=== PATIENT | male | born 1985 | race Caucasian/White ===

== ENCOUNTER 2020-01-21 07:58 | Emergency (ER) | payer SELFPAY ==
[~2020-01-21] VITALS: Ht 185.2 cm; Wt 130.0 kg
--- OUTSIDE RECORDS SUMMARY | 2020-01-21 08:08 | XMS REPORT | Continuity of Care Document ---
Author Organization Unknown Address Unknown Phone Unavailable Allergies There is no data. Medications There is no data. Problems There is no data. Procedures There is no data. Results Test Result Range TESTOSTERONE, TOTAL - 01/07/20 09:04 TESTOSTERONE, TOTAL, MALES (ADULT), [place] 381 ng/dL [id number] Encounters ACCT No. Visit Date/Time Discharge Status Pt. Type Provider Facility Loc./Unit Complaint [id number] 01/14/2020 08:00:00 01/14/2020 23:59: 59 C[facility] [id number] 01/07/2020 09:20:00 Document Registration
[2020-01-21] MEDS ORDERED: LACTATED RINGERS 1,000 ML IV ONE (08:10)
--- NOTE | 2020-01-21 08:10 | ED EENT ---
History of Present Illness General Stated Complaint: POSSIBLE ALLERGIC REACTION;TOOTH ABSCESS Source: patient Exam Limitations: no limitations History of Present Illness Date Seen by Provider: Jan 21, 2020 Time Seen by Provider: 07:59 Initial Comments patient presents to the ER by private conveyance with chief complaint of swelling in the left face as well as pain for the last 2-3 days progressively worse. He is on over a week of clindamycin for abscessed left lower tooth. He is having no discharge or drainage from the mouth. No difficulty with breathing. He says it is a little tender whenever he swallows in his neck. He has no other significant medical history. He does not smoke but he does chew tobacco. He is having no fevers nausea vomiting chills, cough or shortness of air. He has a follow-up appointment with the dentist. He follows with Fredrick Antony nurse practitioner at [facility] for primary care. No other significant medical problems. Allergies and Home Medications Allergies Coded Allergies: Penicillins (Verified Allergy, Unknown, rash, swelling, 01/21/20) Patient Home Medication List Home Medication List Reviewed: Yes Review of Systems Review of Systems Constitutional: No chills, No fever, No malaise Eyes: Denies Blindness, Denies Blurred Vision, Denies Drainage Ears: Denies Dizziness, Denies Pain Nose: denies clots, denies congestion, denies epistaxis, denies pain, denies clear discharge Mouth: see HPI, pain, swelling (left mandible); denies purulent discharge Throat: see HPI, pain, swelling, neck stiffness; denies hoarse, denies aphonia, denies muffled; painful swallowing; denies difficulty with fluids Respiratory: No cough, No short of breath All Other Systems Reviewed Negative Unless Noted: Yes Past Pcpcfwu-Lyijpv-Qqbdav Hx Patient Social History Alcohol Use: Denies Use Recreational Drug Use: No Smoking Status: Never a Smoker Type Used: Smokeless Tobacco Recent Foreign Travel: No Contact w/Someone Who Travel: No Physical Exam Vital Signs Vital Signs - First Documented 01/21/20 08:02 Temp 37.0 Pulse 82 Resp 18 B/P (MAP) 135/90 (105) Pulse Ox 99 O2 Delivery Room Air Height, Weight, BMI Height: '" Weight: lbs. oz. kg; BMI Method: General Appearance: WD/WN, mild distress Eyes: bilateral eye normal inspection, bilateral eye PERRL, bilateral eye EOMI Ears: right ear TM normal; left ear other (1.5 cm blade of grass in the outer ear canal. No erythema, tenderness, exudate.); bilateral ear auricle normal, bilateral ear canal normal Nose: normal inspection; No active bleeding, No discharge Mouth/Throat: dental tenderness; No excessive drooling; mandibular swelling, other (no pointing. Tender mandibular gum left side. No crepitus or tenderness at the temporal mandibular joint.) Neck: tender lateral (left side mild to moderate swelling with tenderness, palpable fluctuance and painful swallowing. ) Cardiovascular: normal peripheral pulses, regular rate, rhythm Respiratory: no respiratory distress, no accessory muscle use Progress/Results/Core Measures Results/Orders Lab Results Laboratory Tests Test 01/21/20 08:13 Range/Units White Blood Count 9.0 4.3-11.0 10^3/uL Red Blood Count 4.92 4.35-5.85 10^6/uL Hemoglobin 14.3 13.3-17.7 G/DL Hematocrit 42 40-54 % Mean Corpuscular Volume 85 80-99 FL Mean Corpuscular Hemoglobin 29 25-34 PG Mean Corpuscular Hemoglobin Concent 34 32-36 G/DL Red Cell Distribution Width 12.8 10.0-14.5 % Platelet Count 293 130-400 10^3/uL Mean Platelet Volume 9.6 7.4-10.4 FL Neutrophils (%) (Auto) 69 42-75 % Lymphocytes (%) (Auto) 22 12-44 % Monocytes (%) (Auto) 9 0-12 % Eosinophils (%) (Auto) 1 0-10 % Basophils (%) (Auto) 0 0-10 % Neutrophils # (Auto) 6.2 1.8-7.8 X 10^3 Lymphocytes # (Auto) 2.0 1.0-4.0 X 10^3 Monocytes # (Auto) 0.8 0.0-1.0 X 10^3 Eosinophils # (Auto) 0.1 0.0-0.3 10^3/uL Basophils # (Auto) 0.0 0.0-0.1 10^3/uL Sodium Level 140 135-145 MMOL/L Potassium Level 3.5 L 3.6-5.0 MMOL/L Chloride Level 105 98-107 MMOL/L Carbon Dioxide Level 24 21-32 MMOL/L Anion Gap 11 5-14 MMOL/L Blood Urea Nitrogen 11 7-18 MG/DL Creatinine 0.91 0.60-1.30 MG/DL Estimat Glomerular Filtration Rate > 60 BUN/Creatinine Ratio 12 Glucose Level 96 70-105 MG/DL Calcium Level 9.0 8.5-10.1 MG/DL Corrected Calcium 8.8 8.5-10.1 MG/DL Total Bilirubin 0.7 0.1-1.0 MG/DL Aspartate Amino Transf (AST/SGOT) 18 5-34 U/L Alanine Aminotransferase (ALT/SGPT) 19 0-55 U/L Alkaline Phosphatase 64 40-136 U/L Total Protein 7.5 6.4-8.2 GM/DL Albumin 4.3 3.2-4.5 GM/DL My Orders Orders - JACLYN ORTEGA Ed Iv/Invasive Line Start (01/21/20 08:10) Lactated Ringers (Lr 1000 Ml Iv Solution (01/21/20 08:10) Ct Neck (Soft Tissue) W (01/21/20 08:10) Cbc With Automated Diff (01/21/20 08:10) Comprehensive Metabolic Panel (01/21/20 08:10) Iohexol Injection (Omnipaque 350 Mg/Ml 1 (01/21/20 08:15) Received Contrast (Hold Metformin- Contr (01/21/20 08:15) Ns (Ivpb) (Sodium Chloride 0.9% Ivpb Bag (01/21/20 08:15) Clindamycin Injection (Cleocin Injection (01/21/20 09:30) Levofloxacin 750 Mg/150 Ml Iv (Levaquin (01/21/20 09:30) Blood Culture (01/21/20 09:19) Medications Given in ED Current Medications Medications Dose Ordered Sig/Mihaela Route Start Time Stop Time Status Last Admin Dose Admin Iohexol 75 ml ONCE ONCE IV 01/21/20 08:15 01/21/20 08:16 DC 01/21/20 08:44 75 ML Lactated Ringer's 1,000 ml @ 0 mls/hr Q0M ONCE IV 01/21/20 08:10 01/21/20 08:12 DC 01/21/20 08:20 1,000 MLS/HR Sodium Chloride 100 ml ONCE ONCE IV 01/21/20 08:15 01/21/20 08:16 DC 01/21/20 08:44 80 ML Vital Signs/I&O 01/21/20 08:02 Temp 37.0 Pulse 82 Resp 18 B/P (MAP) 135/90 (105) Pulse Ox 99 O2 Delivery Room Air Progress Progress Note : Time: 08:20 Progress Note Aseptic vital signs with what looks to be a soft tissue swelling possible abscess related to dental injury. Patient had some concerns about this maybe being allergic since the swelling got worse after starting antibiotics but was reassured by her counseling of this does not appear to be an allergic reaction rather than abscess. CT of the soft tissue of the neck with IV contrast, 1 L of lactated Ringer's, basic labs. We'll consider IV antibiotics if he has significant lab or imaging abnormalities. He is on day 7 of 10 antibiotics. Diagnostic Imaging Diagonstic Imaging: CT (with IV contrast) Plain Films/CT/US/NM/MRI: other (neck) Comments NAME: TRUDY CAIN [facility] REC#: [id number] PT STATUS: REG ER : 1985 PHYSICIAN: JACLYN ORTEGA MD ADMIT DATE: 01/21/20/ER Draft Date of Exam:01/21/20 CT NECK (SOFT TISSUE) W PROCEDURE: CT neck soft tissue with contrast. TECHNIQUE: Multiple contiguous axial images were obtained through the neck after the administration of contrast. Auto Exposure Controls were utilized during the CT exam to meet ALARA standards for radiation dose reduction. INDICATION: Swelling in front of the left ear. No prior studies are available for comparison. FINDINGS: The visualized intracranial structures are unremarkable. Posterior nasopharynx and oropharynx grossly unremarkable. There is some effacement of the left parapharyngeal fat planes. There is some inflammatory stranding in the left neck in the region of the carotid space. There are multiple enlarged lymph nodes in the left jugulodigastric location, largest 1.6 x 1.6 cm. There is mildly prominent left submandibular lymph nodes as well. Posterior cervical space shows mildly prominent lymph nodes on the left. There is low density in the retropharyngeal location extending from C1 to C4. This measures 2.4 cm transverse by 0.7 cm AP by approximately 5.7 cm cephalocaudal. No enhancing rim is identified. No well-formed fluid collection is seen. No peritonsillar abscess is identified. Epiglottis and larynx are unremarkable. There are no thyroid masses. The parotid and submandibular glands are unremarkable. IMPRESSION: Inflammatory changes in the left neck parapharyngeal location as well as region of the left carotid space. There is retropharyngeal edema but no well-formed fluid collection or abscess is seen. There is reactive lymphadenopathy in the left neck as well. No definite airway compromise is seen. Dictated on workstation # [id number] Dict: 01/21/20 0859 Trans: 01/21/20 0908 [id number] Interpreted by: CHARLES MCBRIDE MD Electronically signed by: Reviewed: Reviewed by Me Consults : Consulting Physician: CARLEE DE JESUS APRN Consults Notes Discussed with KAMARI De Jesus for Dr. Wilson, ENT. She agrees with Clindamycin, Decadron and Levaquin. They will see him 1030 Staurday, 01/23/20. Departure Impression Primary Impression: Dental abscess Additional Impression: Cellulitis, neck Disposition: 01 HOME, SELF-CARE Condition: Stable Departure-Patient Inst. Decision time for Depature: 09:43 [place]: [facility] [place] Care Physician SHIRLEY WILSON MD Patient Instructions: Cellulitis (Skin Infection), Adult (DC), Tooth Abscess (DC) Add. Discharge Instructions: Continue taking the clindamycin for the next week. Start taking Levaquin 1 tablet daily for the next week. Return to the ER promptly if you have inability to swallow fluids or difficulty breathing. Plan to follow up with Dr. Wilson's office on Saturday at 10:30 AM. 01/23/20. Tylenol 1000 mg every 8 hours as necessary for pain. Ibuprofen 800 mg every 8 hours as necessary for pain. Warm moist compresses can be helpful for swelling. Scripts Levofloxacin (Levaquin) 750 Mg Tablet 750 MG PO DAILY for 7 Days, #6 TAB 0 Refills Prov: JACLYN ORTEGA 01/21/20 Clindamycin HCl (Clindamycin HCl) 150 Mg Capsule 450 MG PO TID for 4 Days, #36 CAP 0 Refills Prov: JACLYN ORTEGA 01/21/20 Copy Copies To 1: SHIRLEY WILSON MD, TITUS J Jan 21, 2020 08:10
[2020-01-21] MEDS ORDERED: HOLD METFORMIN - RECEIVED CONTRAST 20 ML VIAL IV SCH (08:15)
[2020-01-21] MEDS ORDERED: IOHEXOL 350 MG/ML 100 ML (OMNIPAQUE 350) VIAL IV ONE (08:15)
[2020-01-21] MEDS ORDERED: NS 100 ML (IVPB) BAG IV ONE (08:15)
[2020-01-21 08:23] LABS: BASOPHILS % (AUTO) 0 % (0-10); EOSINOPHILS # (AUTO) 0.1 10^3/uL (0.0-0.3); EOSINOPHILS % (AUTO) 1 % (0-10); HEMATOCRIT 42 % (40-54); HEMOGLOBIN 14.3 G/DL (13.3-17.7); LYMPHOCYTES % (AUTO) 22 % (12-44); MEAN CORPUSCULAR HEMOGLOBIN 29 PG (25-34); MEAN CORPUSCULAR HGB CONC 34 G/DL (32-36); MEAN CORPUSCULAR VOLUME 85 FL (80-99); MEAN PLATELET VOLUME 9.6 FL (7.4-10.4); MONOCYTES # (AUTO) 0.8 X 10^3 (0.0-1.0); MONOCYTES % (AUTO) 9 % (0-12); NEUTROPHILS # (AUTO) 6.2 X 10^3 (1.8-7.8); NEUTROPHILS % (AUTO) 69 % (42-75); PLATELET COUNT 293 10^3/uL (130-400); RED CELL DISTRIBUTION WIDTH 12.8 % (10.0-14.5)
[2020-01-21 08:39] LABS: ALBUMIN 4.3 GM/DL (3.2-4.5)
[2020-01-21 08:40] LABS: CHLORIDE 105 MMOL/L (98-107); POTASSIUM 3.5 MMOL/L (3.6-5.0); SODIUM 140 MMOL/L (135-145)
[2020-01-21 08:42] LABS: GLUCOSE 96 MG/DL (70-105); TOTAL PROTEIN 7.5 GM/DL (6.4-8.2)
[2020-01-21 08:43] LABS: CARBON DIOXIDE 24 MMOL/L (21-32)
[2020-01-21 08:44] LABS: BILIRUBIN,TOTAL 0.7 MG/DL (0.1-1.0)
[2020-01-21 08:45] LABS: ALKALINE PHOSPHATASE 64 U/L (40-136)
[2020-01-21 08:46] LABS: CREATININE SERUM 0.91 MG/DL (0.60-1.30); GFR ESTIMATED > 60
[2020-01-21 08:47] LABS: BUN/CREATININE RATIO 12
[2020-01-21 08:49] LABS: ALANINE AMINOTRANSFERASE 19 U/L (0-55)
--- NOTE | 2020-01-21 09:08 | Diagnostic Imaging Report ---
PROCEDURE: CT neck soft tissue with contrast. TECHNIQUE: Multiple contiguous axial images were obtained through the neck after the administration of contrast. Auto Exposure Controls were utilized during the CT exam to meet ALARA standards for radiation dose reduction. INDICATION: Swelling in front of the left ear. No prior studies are available for comparison. FINDINGS: The visualized intracranial structures are unremarkable. Posterior nasopharynx and oropharynx grossly unremarkable. There is some effacement of the left parapharyngeal fat planes. There is some inflammatory stranding in the left neck in the region of the carotid space. There are multiple enlarged lymph nodes in the left jugulodigastric location, largest 1.6 x 1.6 cm. There is mildly prominent left submandibular lymph nodes as well. Posterior cervical space shows mildly prominent lymph nodes on the left. There is low density in the retropharyngeal location extending from C1 to C4. This measures 2.4 cm transverse by 0.7 cm AP by approximately 5.7 cm cephalocaudal. No enhancing rim is identified. No well-formed fluid collection is seen. No peritonsillar abscess is identified. Epiglottis and larynx are unremarkable. There are no thyroid masses. The parotid and submandibular glands are unremarkable. IMPRESSION: Inflammatory changes in the left neck parapharyngeal location as well as region of the left carotid space. There is retropharyngeal edema but no well-formed fluid collection or abscess is seen. There is reactive lymphadenopathy in the left neck as well. No definite airway compromise is seen. Dictated by: Dictated on workstation # [id number]
--- NOTE | 2020-01-21 09:14 | NUR ---
TO ROOM [facility] CON'T TO INFUSE.
[2020-01-21] MEDS ORDERED: LEVOFLOXACIN 750 MG/150 ML IV 150 ML IV ONE (09:30)
[2020-01-21] MEDS ORDERED: CLINDAMYCIN INJECTION 300 MG in NS (IVPB) 50 ML IV ONE (09:30)
--- NOTE | 2020-01-21 09:37 | NUR ---
LAB HERE TO DRAW 2ND BLOOD CULTURE
[2020-01-21] MEDS ORDERED: CLIN150C17 PO (09:46)
[2020-01-21] MEDS ORDERED: LEVO750T9 PO (09:46)
[2020-01-21] MEDS ORDERED: DEXAMETHASONE 4 MG/ML SDV (DECADRON) IV ONE (10:00)
--- NOTE | 2020-01-21 10:08 | NUR ---
PATIENT REQUESTING SOMETHING FOR PAIN DR ORTEGA NOTIFIED WILL ORDER HYDROCODONE
[2020-01-21] MEDS ORDERED: HYDROcodone/APAP 5 MG/325 MG (LORTAB) TAB PO ONE (10:15)
--- NOTE | 2020-01-21 11:24 | NUR ---
TO ROOM [facility] CON'T TO INFUSE PATIENT REPORTS HE IS FEELING BETTER.
[2020-01-21 11:54] VITALS: BP 123/78
== END 2020-01-21 11:53 | disposition home or self-care (01) ==
LOC: ER 08:00
DX: K04.7 Periapical abscess without sinus (principal); L03.221 Cellulitis of neck; Z88.0 Allergy status to penicillin
CPT/HCPCS: 36415; 70491; 80053; 85025; 87040